=== PATIENT | female | born 1980 | race Caucasian/White ===

== ENCOUNTER 2016-12-18 03:36 | Inpatient (IN) | payer OTHER ==
[2016-12-18 04:14] LABS: Mean Corpuscular Hemoglobin 27 pg (27-31)
[2016-12-18 04:25] LABS: Hematocrit 30 % (35-47); Hemoglobin 9.6 g/dl (12.0-16.0); Mean Corpuscular HGB Conc 32 g/dl (31-36); Mean Corpuscular Volume 83 fL (80-97); Mean Platelet Volume 9 um3 (7.4-10.4); Red Blood Count 3.61 10^6/ul (4.0-5.4); Red Cell Distribution Width 16 % (10.5-15); White Blood Count 8.5 10^3/ul (3.5-10.8)
[2016-12-18 04:26] LABS: Comments Flag Yes
[2016-12-18] MEDS ORDERED: Witch Hazel PAD* JAR TOPICAL PRN (06:03)
[2016-12-18] MEDS ORDERED: Glycerin ADULT SUPP PR PRN (06:03)
[2016-12-18] MEDS ORDERED: Acetaminophen TAB* 325 MG PO PRN (06:03)
[2016-12-18] MEDS ORDERED: Dibucaine 1% 28.35 GM TUBE PR PRN (06:03)
[2016-12-18] MEDS ORDERED: oxyCODONE/Acetamin 5/325 MG* TAB PO PRN (06:03)
[2016-12-18] MEDS ORDERED: OXYTOCIN* 10 UNITS/ML 1 ML VIAL IM ONE (06:03)
[2016-12-18] MEDS ORDERED: Ammonia Inhalant* 1 EA AMP ONE (07:16)
[2016-12-18] MEDS: Docusate CAP* 100 MG PO SCH ×3 (10:42→20:23)
[2016-12-18] MEDS: Ibuprofen TAB* 600 MG PO PRN ×3 (10:42→23:57)
[2016-12-19 08:27] LABS: Hematocrit 28 % (35-47); Hemoglobin 9.1 g/dl (12.0-16.0); Mean Corpuscular HGB Conc 32 g/dl (31-36); Mean Corpuscular Hemoglobin 27 pg (27-31); Mean Corpuscular Volume 83 fL (80-97); Mean Platelet Volume 9 um3 (7.4-10.4); Red Blood Count 3.43 10^6/ul (4.0-5.4); Red Cell Distribution Width 16 % (10.5-15); White Blood Count 7.5 10^3/ul (3.5-10.8)
[2016-12-19] MEDS: Ferrous Gluconate TAB* 324 MG TAB PO SCH ×2 (09:24→21:33)
[2016-12-19] MEDS: Docusate CAP* 100 MG PO SCH ×3 (09:24→21:33)
[2016-12-19] MEDS: Ibuprofen TAB* 600 MG PO PRN (16:56)
[2016-12-19 20:34] VITALS: BP 91/55
[2016-12-20] MEDS: Ibuprofen TAB* 600 MG PO PRN (00:58)
[2016-12-20] MEDS: Docusate CAP* 100 MG PO SCH (09:27)
[2016-12-20] MEDS: Ferrous Gluconate TAB* 324 MG TAB PO SCH (09:27)
== END 2016-12-20 12:18 | disposition home or self-care (01) | DRG 775 ==
LOC: MCHOBOUT 03:36 → MCHOB 03:58
PROVIDERS: ADMIT Midwife; ATTEND Midwife
PROC: 10E0XZZ Delivery of Products of Conception, External Approach (ICD-10-PCS; principal; 2016-12-18)
DX: O48.0 Post-term pregnancy (principal); D64.9 Anemia, unspecified; O99.824 Streptococcus B carrier state complicating childbirth; O99.52 Diseases of the respiratory system complicating childbirth; J45.909 Unspecified asthma, uncomplicated; O90.81 Anemia of the puerperium; Z3A.40 40 weeks gestation of pregnancy; Z37.0 Single live birth
CPT/HCPCS: 36415; 85027; 86850; 86900; 86901; A9270-GY

== ENCOUNTER 2017-05-15 13:31 | Emergency (ER) | payer OTHER ==
[2017-05-15 14:18] VITALS: BP 125/69
--- NOTE | 2017-05-15 14:30 | UC ---
Throat Pain/Nasal Akira HPI - HPI Summary HPI Summary: 36 y/o female presents to the urgent care c/o sore throat for the past 10 days. Pt reports all her family, kids and Dx with strep. she wants to make sure she doesn't have strep. Pain with swallowing is 4/10. Pt denies cough fever, nasal congestion SOB, chest pain, abdominal pain, N/V/D. She states her rapid strep was negative, but culture came back positive. she has taking Advil to alleviate symptoms. - History of Current Complaint Chief Complaint: UCRespiratory Stated Complaint: SORE THROAT Time Seen by Provider: 05/15/17 14:27 Hx Obtained From: Patient Hx Last Menstrual Period: 04/21/17 ?: No Onset/Duration: Gradual Onset, Lasting Weeks - 2 weeks, Still Present, Worse Since - 3 days Severity: Moderate Pain Intensity: 4 Pain Scale Used: 0-10 Numeric Cough: None Associated Signs & Symptoms: Positive: Dysphagia - Epiglottits Risk Factors Epiglottis Risk Factors: Negative - Allergies/Home Medications Allergies/Adverse Reactions: Allergies Allergy/AdvReac Type Severity Reaction Status Date / Time No Known Allergies Allergy Verified 05/15/17 14:15 Home Medications: Home Medications Budesonide/Formote 80/4.5(NF) [Symbicort 80/4.5 (NF)] 05/15/17 [History] PMH/Surg Hx/FS Hx/Imm Hx Previously Healthy: Yes Respiratory History: Asthma - Surgical History Surgical History: Yes Surgery Procedure, Year, and Place: appe; umbilical hernia - Family History Known Family History: Positive: Cardiac Disease, Hypertension, Diabetes - Social History Occupation: Employed Full-time Lives: With Family Alcohol Use: None Substance Use Type: None Smoking Status (MU): Never Smoked Tobacco Have You Smoked in the Last Year: No - Immunization History Most Recent Influenza Vaccination: 03/21 Most Recent Tetanus Shot: 10/25/15 Most Recent Pneumonia Vaccination: not indicated Review of Systems Constitutional: Negative Skin: Negative Eyes: Negative ENT: Sore Throat Respiratory: Negative Cardiovascular: Negative Gastrointestinal: Negative Genitourinary: Negative Motor: Negative Neurovascular: Negative Musculoskeletal: Negative Neurological: Negative Psychological: Negative Is Patient Immunocompromised?: No All Other Systems Reviewed And Are Negative: Yes Physical Exam Triage Information Reviewed: Yes Vital Signs: Initial Vital Signs Temp 99 F 05/15/17 14:15 Pulse 91 05/15/17 14:15 Resp 16 05/15/17 14:15 BP 125/69 05/15/17 14:15 Pulse Ox 99 05/15/17 14:15 - Additional Comments VITAL SIGNS: Reviewed. GENERAL: Patient is a well developed and nourished female who is sitting comfortable in the examining table. Patient is not in any acute respiratory distress. HEAD AND FACE: No signs of trauma. No ecchymosis, hematomas or skull depressions. No sinus tenderness. EYES: PERRLA, EOMI x 2, No injected conjunctiva, no nystagmus. No photophobia. EARS: Hearing grossly intact. Ear canals and tympanic membranes are within normal limits. MOUTH: Positive pharynx with erythema, no exudates, mild palatal petechiae. B/L tonsillar enlargement with no exudate. Uvula in midline. NECK: Supple, trachea is midline, Positive anterior cervical lymphadenopathy, no JVD, no carotid bruit, no c-spine tenderness, neck with full ROM. No meningeal signs, no Kernig's or brudzinskis signs. CHEST: Symmetric, no tenderness at palpation LUNGS: Clear to auscultation bilaterally. No wheezing or crackles. CVS: Regular rate and rhythm, S1 and S2 present, no murmurs or gallops appreciated. ABDOMEN: Soft, non-tender. No signs of distention. No rebound no guarding, and no masses palpated. Bowel sounds are normal. EXTREMITIES: FROM in all major joints, no edema, no cyanosis or clubbing. NEURO: Alert and oriented x 3. No acute neurological deficits. Speech is normal and follows commands. SKIN: Dry and warm Throat Pain/Nasal Course/Dx - Course Course Of Treatment: 36 y/o female presents to the urgent care c/o sore throat for the past 10 days. Pt reports all her family, kids and Dx with strep. she wants to make sure she doesn't have strep. Pain with swallowing is 4 /10. Pt denies cough fever, nasal congestion SOB, chest pain, abdominal pain, N/ V/D. She states her rapid strep was negative, but culture came back positive. she has taking Advil to alleviate symptoms.Hx obtained. Pt with strep pharyngitis on examiantion. Rapid strep ordered: result: positive. Strep pharyngitis. Rx Amoxicillin PO and Ibuprofen PO for pain and swelling. PT Advised on hand washing to avoid spreading. Also advised to rest, eat well and avoid strenuous exercise. If symptoms do not improve or worsen advised to return to the urgent care or f/u with her PCP for further evaluation and treatment. PT understood and agreed with d/C instructions - Differential Dx/Diagnosis Differential Diagnosis/HQI/PQRI: Influenza, Laryngitis, Otitis Media, Pharyngitis, Sinusitis, Tonsillitis, URI Provider Diagnoses: 1- Strep pharyngitis Discharge - Discharge Plan Condition: Stable Disposition: HOME Prescriptions: Amoxicillin PO (*) [Amoxicillin 875 MG (*)] 875 mg PO BID #20 tab Ibuprofen TAB* [Motrin TAB* 600 MG] 600 mg PO Q8H PRN #20 tab PRN Reason: Pain Patient Education Materials: Strep Throat (ED) Referrals: Alden Quarles MD [Primary Care Provider] - If Needed Additional Instructions: 1- Please take the full course of the antibiotic to avoid resistance. 2-Please take ibuprofen PO q6-8hrs prn as instructed after meals to alleviate pain and swelling. Increase fluid intake, eat well, rest and avoid strenuous exercise 3-If symptoms do not improve or worsen please return to the urgent care or f/u with your PCP for further evaluation and treatment.
== END 2017-05-15 15:10 | disposition home or self-care (01) ==
LOC: UCEAST 13:31
DX: J02.0 Streptococcal pharyngitis (principal); J45.909 Unspecified asthma, uncomplicated
CPT/HCPCS: 87651; 99212; G0463

== ENCOUNTER 2017-10-23 15:42 | Emergency (ER) | payer OTHER ==
[2017-10-23 16:26] VITALS: BP 112/76
--- NOTE | 2017-10-23 16:46 | UC ---
Lower Extremity/Ankle HPI - HPI Summary HPI Summary: pain posterior to right lat malleolus after twisting no swelling or bruising occurred yesterday - History of Current Complaint Chief Complaint: UCLowerExtremity Stated Complaint: FOOT INJURY Time Seen by Provider: 10/23/17 16:32 Hx Obtained From: Patient Hx Last Menstrual Period: 09/19/2017 Onset/Duration: Sudden Onset Severity Initially: Moderate Pain Intensity: 6 Pain Scale Used: 0-10 Numeric Aggravating Factor(s): Standing, Ambulation Alleviating Factor(s): Rest Able to Bear Weight: Yes Feet (Multiple View): 1 - pain here. no [place] tenderness. no swelling - Allergies/Home Medications Allergies/Adverse Reactions: Allergies Allergy/AdvReac Type Severity Reaction Status Date / Time No Known Allergies Allergy Verified 05/15/17 14:15 PMH/Surg Hx/FS Hx/Imm Hx Previously Healthy: Yes - Surgical History Surgical History: Yes Surgery Procedure, Year, and Place: appe; umbilical hernia - Family History Known Family History: Positive: None, Cardiac Disease, Hypertension, Diabetes - Social History Alcohol Use: None Substance Use Type: None Smoking Status (MU): Never Smoked Tobacco Have You Smoked in the Last Year: No - Immunization History Most Recent Influenza Vaccination: 03/21 Most Recent Tetanus Shot: 10/25/15 Most Recent Pneumonia Vaccination: not indicated Review of Systems Constitutional: Negative Skin: Negative Eyes: Negative ENT: Negative Respiratory: Negative Cardiovascular: Negative Gastrointestinal: Negative Genitourinary: Negative Motor: Negative Neurovascular: Negative Musculoskeletal: Arthralgia Neurological: Negative Psychological: Negative Is Patient Immunocompromised?: No All Other Systems Reviewed And Are Negative: Yes Physical Exam Triage Information Reviewed: Yes Appearance: Well-Appearing, No Pain Distress, Well-Nourished Vital Signs: Initial Vital Signs Temp 97.9 F 10/23/17 16:18 Pulse 71 10/23/17 16:18 Resp 16 10/23/17 16:18 BP 112/76 10/23/17 16:18 Pulse Ox 100 10/23/17 16:18 Eye Exam: Normal ENT: Positive: Hearing grossly normal. Negative: Nasal congestion, Nasal drainage Neck: Positive: Supple, Nontender Respiratory: Positive: Normal breath sounds, No respiratory distress, No accessory muscle use Cardiovascular: Positive: RRR Musculoskeletal: Positive: Strength Intact, ROM Intact, No Edema Neurological: Positive: Alert Psychological Exam: Normal Skin Exam: Normal Lower Extremity Course/Dx - Differential Dx/Diagnosis Provider Diagnoses: suspect tendon injury right ankle Discharge - Sign-Out/Discharge Documenting (check all that apply): Discharge/Admit/Transfer - Discharge Plan Condition: Stable Disposition: HOME Patient Education Materials: Ankle Strain (ED) Referrals: [facility] [Outside] - As Soon As Possible Additional Instructions: CAM boot when wt bearing you may have injured a tendon that travels behind your lateral ankle bone I suggest you see a sports medicine MD in follow up - Billing Disposition and Condition Condition: STABLE Disposition: HOME
== END 2017-10-23 16:48 | disposition home or self-care (01) ==
LOC: UCEAST 15:42
DX: S99.911A Unspecified injury of right ankle, initial encounter (principal); X50.1XXA Overexertion from prolonged static or awkward postures, initial encounter; Y93.9 Activity, unspecified; Y92.9 Unspecified place or not applicable
CPT/HCPCS: 99212; G0463

== ENCOUNTER 2019-03-04 08:30 | Emergency (ER) | payer OTHER ==
[2019-03-04 08:40] VITALS: BP 116/75
--- NOTE | 2019-03-04 08:53 | UC ---
Lower Extremity/Ankle HPI - HPI Summary HPI Summary: 38-year-old female presents with complaints of right foot pain. States yesterday she was running in her house and accidentally struck her foot on the leg of a table. Reports she has been able to walk and bear weight since the injury however has been noting increasing pain. She has not used any over-the- counter analgesics. Denies ecchymosis, edema, numbness, or tingling. - History of Current Complaint Chief Complaint: UCLowerExtremity Stated Complaint: R FOOT INJ Time Seen by Provider: 03/04/19 08:40 Hx Obtained From: Patient Hx Last Menstrual Period: 1 week ago Pain Intensity: 5 - Allergies/Home Medications Allergies/Adverse Reactions: Allergies Allergy/AdvReac Type Severity Reaction Status Date / Time No Known Allergies Allergy Verified 03/04/19 08:41 Home Medications: Home Medications Fexofenadine (NF) [Lashay (NF)] 60 mg PO DAILY 03/04/19 [History Confirmed ] PMH/Surg Hx/FS Hx/Imm Hx Previously Healthy: Yes - Denies significant PMH - Surgical History Surgical History: Yes Surgery Procedure, Year, and Place: appe; umbilical hernia - Family History Known Family History: Positive: Cardiac Disease, Hypertension, Diabetes - Social History Occupation: Employed Full-time Lives: With Family Alcohol Use: Rare Substance Use Type: None Smoking Status (MU): Never Smoked Tobacco Have You Smoked in the Last Year: No - Immunization History Most Recent Influenza Vaccination: 03/21 Most Recent Tetanus Shot: 10/25/15 Most Recent Pneumonia Vaccination: not indicated Review of Systems All Other Systems Reviewed And Are Negative: Yes Constitutional: Positive: Negative Skin: Negative: Bruising Respiratory: Positive: Negative Cardiovascular: Positive: Negative Gastrointestinal: Positive: Negative Genitourinary: Positive: Negative Motor: Negative: Weakness Neurovascular: Negative: Decreased Sensation Musculoskeletal: Positive: Other: - See HPI Neurological: Positive: Negative Is Patient Immunocompromised?: No Physical Exam - Summary Physical Exam Summary: GENERAL APPEARANCE: Well developed, well nourished, alert and cooperative, and appears to be in no acute distress. CARDIAC: Normal S1 and S2. No S3, S4 or murmurs. Rhythm is regular. There is no peripheral edema, cyanosis or pallor. Extremities are warm and well perfused. Capillary refill is less than 2 seconds. Peripheral pulses intact. LUNGS: Clear to auscultation without rales, rhonchi, wheezing or diminished breath sounds. ABDOMEN: Positive bowel sounds. Soft, nondistended, nontender. No guarding or rebound. No masses or hepatosplenomegally. MUSKULOSKELETAL: Normal muscular development. Limping gait. EXTREMITIES: Tenderness to the dorsal, lateral aspect of the right foot without gross deformity, ecchymosis, or edema. Circulation and sensation intact. SKIN: Skin normal color, texture and turgor with no lesions or eruptions. Triage Information Reviewed: Yes Vital Signs: Initial Vital Signs Temp 98.5 F 03/04/19 08:37 Pulse 58 03/04/19 08:37 Resp 14 03/04/19 08:37 BP 116/75 03/04/19 08:37 Pulse Ox 99 03/04/19 08:37 Vital Signs Reviewed: Yes Diagnostics - Radiology No standard instances Radiology Interpretation Completed By: Radiologist Summary of Radiographic Findings: Order Information: FOOT RIGHT 3+ VWS. HISTORY : pain s/p injury . COMPARISONS: None relevant available at the time of dictation. VIEWS: 3, Frontal, lateral, and oblique views of the right foot. FINDINGS: BONE DENSITY: Normal. BONES: There is no displaced fracture. JOINTS : There is no arthropathy. ALIGNMENT: There is no dislocation. SOFT TISSUES: Unremarkable. OTHER FINDINGS: None. IMPRESSION: NO ACUTE OSSEOUS INJURY. Lower Extremity Course/Dx - Course Course Of Treatment: 38-year-old female presents with complaints of right foot pain. States yesterday she was running in her house and accidentally struck her foot on the leg of a table. Reports she has been able to walk and bear weight since the injury however has been noting increasing pain. She has not used any over-the- counter analgesics. Denies ecchymosis, edema, numbness, or tingling. Afebrile. Vital signs stable. Patient had tenderness to the dorsal, lateral aspect of the right foot without gross deformity, ecchymosis, or edema. Circulation and sensation intact. Remainder of exam was unremarkable. X-ray showed no acute osseous injury. Recommending conservative treatment for a right foot contusion including [id number] analgesics and RICE. Patient is to follow-up with her primary care provider in 5-7 days if symptoms do not improve. Anticipatory guidance and warning symptoms are reviewed with the patient. Verbalizes understanding and agrees with plan of care. - Differential Dx/Diagnosis Differential Diagnosis/HQI/PQRI: Contusion, Fracture (Closed), Sprain Provider Diagnosis: Contusion of foot, right Discharge ED - Sign-Out/Discharge Documenting (check all that apply): Patient Departure All imaging exams completed and their final reports reviewed: Yes - Discharge Plan Condition: Stable Disposition: HOME Patient Education Materials: Foot Contusion (ED) Referrals: Alden Quarles MD [Primary Care Provider] - Additional Instructions: The x-ray performed in the clinic today showed no evidence of a fracture. I suspect you have a contusion (bruise) of the foot. Rest the foot as much as possible. You may continue to walk and bear weight as tolerated. Apply ice to the affected area for 15-20 minutes at least 4 times a day to help with the pain and swelling. Elevate the foot to help reduce swelling. Take acetaminophen (Tylenol) or ibuprofen (Advil, Motrin) according to directions as needed for pain. Follow up with your primary care provider in 5-7 days if symptoms do not improve. Seek immediate medical attention if you have severe pain not managed with pain medication, you are unable to walk or bear any weight, develop numbness or tingling in the foot or toes, or have any worsening of symptoms. - Billing Disposition and Condition Condition: STABLE Disposition: Home - Attestation Statements Provider Attestation: I was available for consult. This patient was seen by the ESTEFANIA. The patient was not presented to, seen by, or examined by me. Cedrick Jacques MD
== END 2019-03-04 09:23 | disposition home or self-care (01) ==
LOC: UCEAST 08:30
DX: S90.31XA Contusion of right foot, initial encounter (principal); W22.03XA Walked into furniture, initial encounter; Y93.02 Activity, running; Y92.009 Unspecified place in unspecified non-institutional (private) residence as the place of occurrence of the external cause
CPT/HCPCS: 99211; G0463